=== PATIENT | female | born 1990 | race American Indian/Alaskan Native ===

== ENCOUNTER 2020-05-25 08:09 | Observation (INO) | payer OTHER ==
[2020-05-25] MEDS ORDERED: HYOSCYAMINE SUBL 0.125 MG TAB SL ONE (10:27)
[2020-05-25] MEDS ORDERED: FAMOTIDINE 20 MG TAB PO ONE (10:27)
[2020-05-25] MEDS ORDERED: ALUM-MAG HYDROXIDE-SIMETHICONE 200-200-20MG/5ML ORAL LIQD 30 ML PO ONE (10:27)
[2020-05-25] MEDS ORDERED: ONDANSETRON 4 MG/2 ML INJ IV ONE (10:29)
[2020-05-25] MEDS ORDERED: SODIUM CHLORIDE 0.9% 1000 ML 1,000 ML IV ONE ×2 (10:29→12:42)
[2020-05-25] MEDS ORDERED: MORPHINE 4 MG/1 ML INJ IV ONE (10:29)
[2020-05-25 10:34] LABS: Basophils % (Auto) 0.2 % (0.0-1.8); Eosinophils % (Auto) 0.1 % (0.0-4.3); Hematocrit 34.8 % (30.3-42.9); Hemoglobin 11.5 gm/dl (10.1-14.3); Lymphocytes # (Auto) 2.1 K/mm3 (1.2-5.4); Lymphocytes % (Auto) 25.2 % (13.4-35.0); Mean Corpuscular HGB Conc 33 % (30-34); Mean Corpuscular Volume 83 fl (79-97); Monocytes # (Auto) 0.6 K/mm3 (0.0-0.8); Monocytes % (Auto) 6.8 % (0.0-7.3); Platelet Count 316 K/mm3 (140-440); Red Blood Count 4.18 M/mm3 (3.65-5.03); Red Cell Distribution Width 14.5 % (13.2-15.2)
--- NOTE | 2020-05-25 10:39 | Emergency Department Report ---
ED Abdominal Pain HPI - General Chief Complaint: Abdominal Pain Stated Complaint: ABD/CP Time Seen by Provider: 05/25/20 10:15 Source: patient Mode of arrival: Ambulatory Limitations: No Limitations - History of Present Illness Initial Comments: Patient is a 29-year-old female presents emergency room complaints of epigastric abdominal pain that radiates up her chest that began 4 days ago. She has associated nausea. Patient states that she has a history of PUD and gallstones. She states that she has had a gallstone removal but still has her gallbladder. She denies any vomiting, diarrhea, fever, urinary symptoms, hematochezia, melena or hematemesis. She denies any other past medical history. No allergies to medications. Last menstrual cycle 05/18/2019. - Related Data Allergies Allergy/AdvReac Type Severity Reaction Status Date / Time No Known Allergies Allergy Unverified 05/25/20 08:25 ED Review of Systems ROS: Stated complaint: ABD/CP Other details as noted in HPI Comment: All other systems reviewed and negative ED Past Medical Hx - Past Medical History Previous Medical History?: No - Surgical History Hx Cholecystectomy: Yes Additional Surgical History: C SECTION - Social History Smoking Status: Never Smoker ED Physical Exam - General Limitations: No Limitations General appearance: alert, in no apparent distress - Head Head exam: Present: atraumatic, normocephalic - Eye Eye exam: Present: normal appearance - ENT ENT exam: Present: mucous membranes moist - Respiratory Respiratory exam: Present: normal lung sounds bilaterally. Absent: respiratory distress, wheezes, rales, rhonchi, stridor, chest wall tenderness, accessory muscle use, decreased breath sounds, prolonged expiratory - Cardiovascular Cardiovascular Exam: Present: regular rate, normal rhythm, normal heart sounds. Absent: systolic murmur, diastolic murmur, rubs, gallop - GI/Abdominal GI/Abdominal exam: Present: soft, tenderness (epigastric, RUQ, RLQ), guarding (voluntary), normal bowel sounds. Absent: distended, rebound, rigid - Neurological Exam Neurological exam: Present: alert, oriented X3 - Psychiatric Psychiatric exam: Present: normal affect, normal mood - Skin Skin exam: Present: warm, dry, intact ED Course Vital Signs 05/25/20 05/25/20 05/25/20 08:28 11:42 15:10 Temperature 98.2 F 97.1 F L Pulse Rate 96 H 99 H Respiratory 20 18 13 Rate Blood Pressure 142/70 112/53 Blood Pressure [left arm] O2 Sat by Pulse 95 100 Oximetry 05/25/20 05/25/20 05/25/20 15:15 15:30 15:45 Temperature Pulse Rate 80 84 72 Respiratory 13 15 14 Rate Blood Pressure 111/52 120/59 115/52 Blood Pressure [left arm] O2 Sat by Pulse 100 98 100 Oximetry 05/25/20 05/25/20 16:10 16:28 Temperature 98.1 F 98.1 F Pulse Rate 80 80 Respiratory 18 18 Rate Blood Pressure 116/51 Blood Pressure 116/51 [left arm] O2 Sat by Pulse 96 96 Oximetry - Consultations Consultation #1: 05/25/20 12:40 Received call from radiologist regarding severe acute appendicitis, no perforation or abscess currently, concern for potential impending perforation, ordered another liter of normal saline, place patient n.p.o., patient given Zosyn, general surgery paged 05/25/20 12:[address] Molina, ER attending who agrees with plan 05/25/20 12:[address] Ceja, general surgery regarding patient presentation and results, will consult on patient 05/25/20 12:58 attempted to call hospitalist, left voicemail, will await call back 05/25/20 13:[address] Waite, hospitalist who is in the emergency department, he will accept and resume care of patient, will admit patient to hospitalist service ED Medical Decision Making - Lab Data Result diagrams: 05/25/20 09:22 05/25/20 09:22 Lab Results 05/25/20 05/25/20 05/25/20 Range/Units 09:22 09:22 09:22 WBC 8.4 (4.5-11.0) K/mm3 RBC 4.18 (3.65-5.03) M/mm3 Hgb 11.5 (10.1-14.3) gm/dl Hct 34.8 (30.3-42.9) % MCV 83 (79-97) fl MCH 28 (28-32) pg MCHC 33 (30-34) % RDW 14.5 (13.2-15.2) % Plt Count 316 (140-440) K/mm3 Lymph % (Auto) 25.2 (13.4-35.0) % Murray % (Auto) 6.8 (0.0-7.3) % Eos % (Auto) 0.1 (0.0-4.3) % Baso % (Auto) 0.2 (0.0-1.8) % Lymph # (Auto) 2.1 (1.2-5.4) K/mm3 Murray # (Auto) 0.6 (0.0-0.8) K/mm3 Eos # (Auto) 0.0 (0.0-0.4) K/mm3 Baso # (Auto) 0.0 (0.0-0.1) K/mm3 Seg Neutrophils % 67.7 (40.0-70.0) % Seg Neutrophils # 5.7 (1.8-7.7) K/mm3 Sodium 136 L (137-145) mmol/L Potassium 4.0 (3.6-5.0) mmol/L Chloride 101.8 (98-107) mmol/L Carbon Dioxide 26 (22-30) mmol/L Anion Gap 12 mmol/L BUN 6 L (7-17) mg/dL Creatinine 0.7 (0.6-1.2) mg/dL Estimated GFR > 60 ml/min BUN/Creatinine Ratio 9 % Glucose 95 (65-100) mg/dL Calcium 8.4 (8.4-10.2) mg/dL Total Bilirubin 0.40 (0.1-1.2) mg/dL AST 15 (5-40) units/L ALT 15 (7-56) units/L Alkaline Phosphatase 64 (35-129) units/L Total Protein 7.4 (6.3-8.2) g/dL Albumin 4.3 (3.9-5) g/dL Albumin/Globulin Ratio 1.4 % Lipase 23 (13-60) units/L HCG, Qual (Negative) Urine Color (Yellow) Urine Turbidity (Clear) Urine pH (5.0-7.0) Ur Specific [place] (1.003-1.030) Urine Protein (Negative) mg/dL Urine Glucose (UA) (Negative) mg/dL Urine Ketones (Negative) mg/dL Urine Blood (Negative) Urine Nitrite (Negative) Urine Bilirubin (Negative) Urine Urobilinogen (<2.0) mg/dL Ur Leukocyte Esterase (Negative) Urine WBC (Auto) (0.0-6.0) /HPF Urine RBC (Auto) (0.0-6.0) /HPF U Epithel Cells (Auto) (0-13.0) /HPF Urine Mucus /HPF 05/25/20 05/25/20 Range/Units 09:22 11:57 WBC (4.5-11.0) K/mm3 RBC (3.65-5.03) M/mm3 Hgb (10.1-14.3) gm/dl Hct (30.3-42.9) % MCV (79-97) fl MCH (28-32) pg MCHC (30-34) % RDW (13.2-15.2) % Plt Count (140-440) K/mm3 Lymph % (Auto) (13.4-35.0) % Murray % (Auto) (0.0-7.3) % Eos % (Auto) (0.0-4.3) % Baso % (Auto) (0.0-1.8) % Lymph # (Auto) (1.2-5.4) K/mm3 Murray # (Auto) (0.0-0.8) K/mm3 Eos # (Auto) (0.0-0.4) K/mm3 Baso # (Auto) (0.0-0.1) K/mm3 Seg Neutrophils % (40.0-70.0) % Seg Neutrophils # (1.8-7.7) K/mm3 Sodium (137-145) mmol/L Potassium (3.6-5.0) mmol/L Chloride (98-107) mmol/L Carbon Dioxide (22-30) mmol/L Anion Gap mmol/L BUN (7-17) mg/dL Creatinine (0.6-1.2) mg/dL Estimated GFR ml/min BUN/Creatinine Ratio % Glucose (65-100) mg/dL Calcium (8.4-10.2) mg/dL Total Bilirubin (0.1-1.2) mg/dL AST (5-40) units/L ALT (7-56) units/L Alkaline Phosphatase (35-129) units/L Total Protein (6.3-8.2) g/dL Albumin (3.9-5) g/dL Albumin/Globulin Ratio % Lipase (13-60) units/L HCG, Qual Negative (Negative) Urine Color Yellow (Yellow) Urine Turbidity Clear (Clear) Urine pH 6.0 (5.0-7.0) Ur Specific [place] 1.012 (1.003-1.030) Urine Protein <15 mg/dl (Negative) mg/dL Urine Glucose (UA) Neg (Negative) mg/dL Urine Ketones Neg (Negative) mg/dL Urine Blood Neg (Negative) Urine Nitrite Neg (Negative) Urine Bilirubin Neg (Negative) Urine Urobilinogen 2.0 (<2.0) mg/dL Ur Leukocyte Esterase Neg (Negative) Urine WBC (Auto) < 1.0 (0.0-6.0) /HPF Urine RBC (Auto) 1.0 (0.0-6.0) /HPF U Epithel Cells (Auto) 2.0 (0-13.0) /HPF Urine Mucus Few /HPF - EKG Data EKG shows normal: sinus rhythm, axis, intervals, QRS complexes, ST-T waves Rate: normal - Radiology Data Radiology results: report reviewed Ordering Physician: KAR PHILLIPS Date of Service: 05/25/20 Procedure(s): CT abdomen pelvis w con Accession Number(s): [id number] cc: KAR PHILLIPS CT ABDOMEN AND PELVIS WITH CONTRAST INDICATION / CLINICAL INFORMATION: abd pain, nausea, hx of gallstones/PUD. TECHNIQUE: Axial CT images were obtained through the abdomen and pelvis following the administration of intravenous contrast. All CT scans at this location are performed using CT dose reduction for ALARA by means of automated exposure control. COMPARISON: Abdominal radiograph the same date. FINDINGS: LOWER CHEST: No significant abnormality. LIVER: No significant abnormality. GALLBLADDER: Surgically absent. PANCREAS: No significant abnormality. SPLEEN: No significant abnormality. ADRENALS: No significant abnormality. KIDNEYS / URETERS: No significant abnormality. URINARY BLADDER: No significant abnormality. REPRODUCTIVE ORGANS: There is a 1.8 cm right ovarian cyst. STOMACH / SMALL BOWEL: No significant abnormality. COLON: No significant abnormality. APPENDIX: The appendix is severely dilated (up to 1.6 cm) with mucosal thickening and extensive periappendiceal inflammatory fat stranding. There is no evidence of perforation or abscess formation at this time. There are prominent right lower quadrant and mesenteric lymph nodes, likely reactive. PERITONEUM: No free fluid. No free air. No fluid collection. LYMPH NODES: No significant adenopathy. AORTA / ARTERIES: No significant abnormality. IVC / VEINS: No significant abnormality. SKELETAL SYSTEM: No significant abnormality. ADDITIONAL FINDINGS: None. IMPRESSION: 1. Severe acute appendicitis without perforation or abscess formation. Surgical consultation is advised. 2. 1.8 cm right ovarian cyst. CRITICAL RESULT: Acute appendicitis Time of Discovery (SENIOR DATA INTEGRATION DEVELOPER/CDT): 11:35 AM Time of Communication (SENIOR DATA INTEGRATION DEVELOPER/CDT): 11:40 AM Licensed Practitioner Receiving Report: Dariela Kelly Read Back Performed: Yes. Signer Name: Lucho Wagner MD Signed: 05/25/2020 12:45 PM Workstation Name: [id number] Transcribed By: SS Dictated By: LUCHO WAGNER Electronically Authenticated By: LUCHO WAGNER Signed Date/Time: 05/25/20 1245 DD/ 1233 TD/TT: Ordering Physician: KAR MONROE Date of Service: 05/25/20 Procedure(s): XR abd series w cxr 1V Accession Number(s): [id number] cc: KAR MONROE Fluoro Time In Minutes: EXAMINATION: XR abd series w cxr 1V HISTORY: abd pain COMPARISON: None available. FINDINGS: Lines and tubes: None Chest: The lungs are clear. No evidence of cardiomegaly, pleural effusion or pneumothorax. Abdomen: Cholecystectomy clips. Bowel gas pattern is nonobstructive. Moderate retained stool right colon. No suspicious calcifications or free air. There is borderline hepatomegaly. Other: None. IMPRESSION: 1. No acute radiographic abnormality. 2. Nonspecific borderline hepatomegaly. Signer Name: Linnea Morrow MD Signed: 05/25/2020 11:17 AM Workstation Name: [id number] Transcribed By: JS Dictated By: LINNEA MORROW MD Electronically Authenticated By: LINNEA MORROW MD Signed Date/Time: 05/25/20 1117 DD/ 1115 TD/TT: - Medical Decision Making Patient is a 29-year-old female presents emergency room complaints of epigastric abdominal pain that radiates up her chest that began 4 days ago. She has associated nausea. Patient states that she has a history of PUD and gallstones. She states that she has had a gallstone removal but still has her gallbladder. She denies any vomiting, diarrhea, fever, urinary symptoms, hematochezia, melena or hematemesis. She denies any other past medical history. No allergies to medications. Last menstrual cycle 05/18/2019. Vitals are stable. On exam patient has epigastric, right upper quadrant, right lower quadrant tenderness on exam with voluntary guarding. Labs are normal. hCG is negative. UA is within normal limits. EKG within normal limits. X-ray abdomen with chest 1. No acute radiographic abnormality. 2. Nonspecific borderline hepatomegaly. Patient initially stated that she just had gallstone removal without a cholecystectomy, her gallbladder is surgically absent which is consistent with a cholecystectomy. CT abdomen pelvis with IV contrast 1. Severe acute appendicitis without perforation or abscess formation. Surgical consultation is advised. 2. 1.8 cm right ovarian cyst. Received call from radiologist regarding severe acute appendicitis, no perforation or abscess currently, concern for potential impending perforation, ordered another liter of normal saline, place patient n.p.o., patient given Magda general surgery paged. Discussed case with Dr. Molina, ER attending who agrees with plan. Discussed case with Dr. Ceja, general surgery regarding patient presentation and results, will consult on patient. Spoke with Dr. Waite, hospitalist who is in the emergency department, he will accept and resume care of patient, will admit patient to hospitalist service Critical care attestation.: If time is entered above; I have spent that time in minutes in the direct care of this critically ill patient, excluding procedure time. ED Disposition Clinical Impression: Acute appendicitis Qualifiers: Acute appendicitis type: with localized peritonitis Appendicitis gangrene presence: without gangrene Appendicitis perforation presence: without perforation Appendicitis abscess presence: without abscess Qualified Code(s): K35.30 - Acute appendicitis with localized peritonitis, without perforation or gangrene Disposition: OP ADMIT IP TO THIS HOSP Is pt being admited?: Yes Does the pt Need Aspirin: No Condition: Fair Time of Disposition: 12:54
[2020-05-25 11:18] LABS: Alanine Aminotransferase 15 units/L (7-56); Albumin 4.3 g/dL (3.9-5); Blood Urea Nitrogen 6 mg/dL (7-17); Calcium 8.4 mg/dL (8.4-10.2); Hemolysis Index 0
[2020-05-25 11:20] LABS: BUN/Creatinine Ratio 9
--- NOTE | 2020-05-25 11:22 | XRay Report ---
EXAMINATION: XR abd series w cxr 1V HISTORY: abd pain COMPARISON: None available. FINDINGS: Lines and tubes: None Chest: The lungs are clear. No evidence of cardiomegaly, pleural effusion or pneumothorax. Abdomen: Cholecystectomy clips. Bowel gas pattern is nonobstructive. Moderate retained stool right co marcos. No suspicious calcifications or free air. There is borderline hepatomegaly. Other: None. IMPRESSION: 1. No acute radiographic abnormality. 2. Nonspecific borderline hepatomegaly. Signer Name: Ken Morrow MD Signed: 05/25/2020 11:17 AM Workstation Name: [id number]
[2020-05-25 12:10] LABS: Bilirubin,Urine NEG (Negative); Blood,Urine NEG (Negative); Color,Urine Yellow (Yellow); Mucus,Urine FEW /HPF; Protein,Urine <15 mg/dL mg/dL (Negative); WBC,Urine < 1.0 /HPF (0.0-6.0)
[2020-05-25] MEDS ORDERED: PIPERACIL/TAZOBACTA 4.5/NS 100 4.5 GM/100 ML VIAL IV ONE (12:42)
--- NOTE | 2020-05-25 12:50 | Cat Scan Report ---
CT ABDOMEN AND PELVIS WITH CONTRAST INDICATION / CLINICAL INFORMATION: abd pain, nausea, hx of gallstones/PUD. TECHNIQUE: Axial CT images were obtained through the abdomen and pelvis following the administration of intraven ous contrast. All CT scans at this location are performed using CT dose reduction for ALARA by means of automated exposure control. COMPARISON: Abdominal radiograph the same date. FINDINGS: LOWER CHEST: No significant abnormality. LIVER: No significant abnormality. GALLBLADDER: Surgically absent. PANCREAS: No significant abnormality. SPLEEN: No significant abnormality. ADRENALS: No significant abnormality. KIDNEYS / URETERS: No significant abnormality. URINARY BLADDER: No significant abnormality. REPRODUCTIVE ORGANS: There is a 1.8 cm right ovarian cyst. STOMACH / SMALL BOWEL: No significant abnormality. COLON: No significant abnormality. APPENDIX: The appendix is severely dilated (up to 1.6 cm) with mucosal thickening and extensive peria ppendiceal inflammatory fat stranding. There is no evidence of perforation or abscess formation at th is time. There are prominent right lower quadrant and mesenteric lymph nodes, likely reactive. PERITONEUM: No free fluid. No free air. No fluid collection. LYMPH NODES: No significant adenopathy. AORTA / ARTERIES: No significant abnormality. IVC / VEINS: No significant abnormality. SKELETAL SYSTEM: No significant abnormality. ADDITIONAL FINDINGS: None. IMPRESSION: 1. Severe acute appendicitis without perforation or abscess formation. Surgical consultation is advis ed. 2. 1.8 cm right ovarian cyst. CRITICAL RESULT: Acute appendicitis Time of Discovery (ANAESTHETIC TECHNICIAN/CDT): 11:35 AM Time of Communication (ANAESTHETIC TECHNICIAN/CDT): 11:40 AM Licensed Practitioner Receiving Report: Dariela Kelly Read Back Performed: Yes. Signer Name: Jem Wagner MD Signed: 05/25/2020 12:45 PM Workstation Name: [id number]
--- NOTE | 2020-05-25 13:17 | History and Physical Report ---
History of Present Illness Chief complaint: My stomach hurts History of present illness: 29 YO Female with Obesity presents to ED for evaluation. Patient states "my stomach hurts". Patient states that she has experienced abdominal pain over the last 4 days with persistent symptoms over the same timeframe. Patient states that pain is 4/10, intermittent, radiates to the left side of her abdomen, associated with nausea. No exacerbating or alleviating factors. Patient transported to [facility] via private vehicle for further care and evaluation of the aforementioned symptoms. The patient was seen and evaluated in the emergency department. All lab and imaging studies reviewed. Patient underwent CT scan of the abdomen and pelvis which revealed acute appendicitis. Surgical team consulted in ED. Patient placed in observation status and admitted to surgical floor. Patient is pending surgical intervention as per surgical team. Patient denies fever, chills, chest pain, palpitation, productive cough, skin rash, recent ill contacts, or known exposure to COVID-19. No prior admission for review. No medication listed at the time of my admission for reconciliation. Past History Past Medical History: other (See HP) Past Surgical History: No surgical history, Other (Reviewed) Social history: single. denies: smoking, alcohol abuse, prescription drug abuse Family history: no significant family history Medications and Allergies Allergies Allergy/AdvReac Type Severity Reaction Status Date / Time No Known Allergies Allergy Unverified 05/25/20 08:25 Active Meds: Active Medications Sodium Chloride (Nacl 0.9% 1000 Ml) 1,000 mls @ 999 mls/hr IV BOLUS ONE Stop: 05/25/20 13:42 Last Admin: 05/25/20 13:03 Dose: 999 mls/hr Documented by: Review of Systems Constitutional: no weight loss, no weight gain, no fever, no chills Ears, nose, mouth and throat: no ear pain, no ear discharge, no tinnitis, no decreased hearing, no nose pain Breasts: no change in shape, no swelling, no mass Cardiovascular: no chest pain, no orthopnea, no rapid/irregular heart beat, no edema, no syncope Respiratory: no cough, no excessive sputum, no dyspnea on exertion Gastrointestinal: abdominal pain, nausea, no vomiting, no diarrhea, no constipation, no change in bowel habits, no hematemesis Genitourinary Female: no pelvic pain, no flank pain, no dysuria, no urinary frequency, no urgency Rectal: no pain, no incontinence, no bleeding Musculoskeletal: no neck stiffness, no shooting arm pain, no arm numbness/tingling, no shooting leg pain, no leg numbness/tingling Integumentary: no rash, no pruritis, no redness, no sores, no wounds Neurological: no transient paralysis, no paralysis, no weakness, no parathesias, no tingling, no seizures, no syncope Psychiatric: no anxiety, no memory loss, no sleep disturbances, no hypersomnia, no change in appetite, no change in libido, no disorientation Endocrine: no cold intolerance, no heat intolerance, no polydipsia, no polyuria, no nocturia, no excessive sweating Hematologic/Lymphatic: no easy bruising, no easy bleeding, no lymphedema Allergic/Immunologic: no urticaria, no persistent infections, no angioedema Exam - Constitutional Vitals: Temp Pulse Resp BP Pulse Ox 98.2 F 96 H 18 142/70 95 05/25/20 08:28 05/25/20 08:28 05/25/20 11:42 05/25/20 08:28 05/25/20 08:28 General appearance: Present: mild distress, obese - EENT Eyes: Present: PERRL ENT: hearing intact, clear oral mucosa - Neck Neck: Present: supple, normal ROM - Respiratory Respiratory effort: normal Respiratory: bilateral: CTA - Cardiovascular Heart Sounds: Present: S1 & S2. Absent: rub, click - Extremities Extremities: pulses symmetrical, No edema Peripheral Pulses: within normal limits - Abdominal General gastrointestinal: Present: soft, non-tender, tender, normal bowel sounds. Absent: hepatomegaly, splenomegaly Localized gastrointestinal: tender: RLQ Female genitourinary: Present: normal - Integumentary Integumentary: Present: clear, warm, dry - Musculoskeletal Musculoskeletal: gait normal, strength equal bilaterally - Psychiatric Psychiatric: appropriate mood/affect, intact judgment & insight - Neurologic Neurologic: CNII-XII intact, moves all extremities Results - Labs CBC & Chem 7: 05/25/20 09:22 05/25/20 09:22 Labs: Abnormal lab results 05/25/20 Range/Units 09:22 Sodium 136 L (137-145) mmol/L BUN 6 L (7-17) mg/dL Assessment and Plan - Patient Problems (1) Acute appendicitis Current Visit: Yes Status: Acute Qualifiers: Acute appendicitis type: with localized peritonitis Appendicitis gangrene presence: without gangrene Appendicitis perforation presence: without perforation Appendicitis abscess presence: without abscess Qualified Code(s): K35.30 - Acute appendicitis with localized peritonitis, without perforation or gangrene Plan to address problem: CT scan abdomen and pelvis, IV antibiotic therapy, IV fluid resuscitation therapy, n.p.o., surgery team consulted in ED. Patient pending surgical intervention, supportive care. (2) Abdominal pain Current Visit: Yes Status: Acute Plan to address problem: Bowel rest, pain control, IV fluid resuscitation therapy, supportive care. (3) Obesity Current Visit: Yes Status: Acute Plan to address problem: Balanced diet, increase physical activity discharge, (4) DVT prophylaxis Current Visit: Yes Status: Acute Plan to address problem: SCD to bilateral lower extremities while in bed, patient is ambulatory.
[2020-05-25] MEDS ORDERED: BUPIVACAINE-EPINEPHRINE/PF 0.5%-1:200,000 (30 ML) VIAL INFILTRATI ONE (13:21)
[2020-05-25] MEDS ORDERED: LIDOCAINE (1%) 10 MG/1 ML VIAL 20 ML MDV ONE (13:21)
[2020-05-25] MEDS ORDERED: SUCCINYLCHOLINE CHLORIDE 200 MG/10 ML INJ MDV ONE (13:30)
[2020-05-25] MEDS ORDERED: SODIUM CHLORIDE 0.9% 1000 ML 1,000 ML IV SCH (13:30)
[2020-05-25] MEDS ORDERED: ROCURONIUM 50 MG/5 ML INJ IV ONE (13:30)
[2020-05-25] MEDS ORDERED: propofoL 200 MG/20 ML VIAL IV ONE (13:32)
[2020-05-25] MEDS ORDERED: SODIUM CHLORIDE 0.9% IRR 1,500 ML BOTTLE IR ONE (13:39)
[2020-05-25] MEDS ORDERED: BUPIVACAINE/PF (0.5%) 5 MG/1 ML 30 ML VIAL INFILTRATI ONE (13:39)
[2020-05-25] MEDS ORDERED: LIDOCAINE (1%) 10 MG/1 ML VIAL 20 ML MDV INFILTRATI ONE (13:40)
[2020-05-25] MEDS ORDERED: LIDOCAINE MPF (2%) 20 MG/1 ML VIAL 5 ML ONE (13:56)
[2020-05-25] MEDS ORDERED: fentaNYL 100 MCG/2 ML INJ ONE (13:56)
[2020-05-25] MEDS ORDERED: ONDANSETRON 4 MG/2 ML INJ IV PRN ×3 (14:00→16:21)
[2020-05-25] MEDS ORDERED: ACETAMINOPHEN 325 MG TAB PO PRN (14:00)
[2020-05-25] MEDS ORDERED: HYDROmorphone 1 MG/1 ML INJ ONE (14:18)
[2020-05-25] MEDS ORDERED: NEOSTIGMINE 10MG/10 ML INJ MDV ONE (14:31)
[2020-05-25] MEDS ORDERED: GLYCOPYRROLATE 0.4 MG/2 ML INJ ONE (14:31)
[2020-05-25] MEDS ORDERED: SUGAMMADEX SODIUM 200 MG/2 ML VIAL IV ONE (14:58)
[2020-05-25] MEDS ORDERED: ONDANSETRON 4 MG/2 ML INJ ONE (15:00)
--- NOTE | 2020-05-25 15:17 | Consultation ---
History of Present Illness Consult date: 05/25/20 Reason for consult: abdominal pain Chief complaint: abdominal pain - History of present illness History of present illness: 29 year old female who presented with a 4 day history of hoda-umbilical pain krishna t migrated to the RLQ. She had some nausea. She had a CT scan that showed an appendix dilated up to 1.6cm. Past History Past Medical History: other (peptic ulcer disease) Past Surgical History: , Other ("gallstones removed") Medications and Allergies Allergies Allergy/AdvReac Type Severity Reaction Status Date / Time No Known Allergies Allergy Unverified 05/25/20 08:25 Active Meds: Active Medications Acetaminophen (Acetaminophen 325 Mg Tab) 650 mg PO Q4H PRN PRN Reason: Pain MILD(1-3)/Fever >100.5/CASH Albuterol (Albuterol 2.5 Mg/3 Ml Nebu) 2.5 mg IH Q4HRT PRN PRN Reason: Shortness Of Breath Sodium Chloride (Nacl 0.9% 1000 Ml) 1,000 mls @ 125 mls/hr IV DIRECT WINNIE Piperacillin Sod/Tazobactam Sod (Zosyn/Ns 4.5gm/100ml) 4.5 gm in 100 mls @ 200 mls/hr IV Q8H WINNIE; Protocol Morphine Sulfate (Morphine 2 Mg/1 Ml Inj) 2 mg IV Q4H PRN PRN Reason: Pain, Moderate (4-6) Ondansetron HCl (Ondansetron 4 Mg/2 Ml Inj) 4 mg IV Q8H PRN PRN Reason: Nausea And Vomiting Sodium Chloride (Sodium Chloride 0.9% 10 Ml Flush Syringe) 10 ml IV BID WINNIE Sodium Chloride (Sodium Chloride 0.9% 10 Ml Flush Syringe) 10 ml IV PRN PRN PRN Reason: LINE FLUSH Review of Systems - Constitutional poor appetite, no weight loss, no weight gain - Cardiovascular no chest pain - Respiratory no cough - Gastrointestinal abdominal pain, nausea - Genitourinary Genitourinary: no dysuria Exam Vital Signs Temp Pulse Resp BP Pulse Ox 98.2 F 96 H 20 142/70 95 05/25/20 08:28 05/25/20 08:28 05/25/20 08:28 05/25/20 08:28 05/25/20 08:28 - General physical appearance Positive: well developed, well nourished, no distress - Respiratory Positive: normal expansion, normal respiratory effort - Cardiovascular Heart Sounds: Present: S1 & S2 - Extremities Extremities: no ischemia - Abdomen Abdomen: Present: soft, guarding, other (tender to palpation in the mid abdomen and RLQ). Absent: distended, rigid Results - Labs 05/25/20 09:22 05/25/20 09:22 Abnormal lab results 05/25/20 Range/Units 09:22 Sodium 136 L (137-145) mmol/L BUN 6 L (7-17) mg/dL Diabetes panel 05/25/20 Range/Units 09:22 Sodium 136 L (137-145) mmol/L Potassium 4.0 (3.6-5.0) mmol/L Chloride 101.8 (98-107) mmol/L Carbon Dioxide 26 (22-30) mmol/L BUN 6 L (7-17) mg/dL Creatinine 0.7 (0.6-1.2) mg/dL Glucose 95 (65-100) mg/dL Calcium 8.4 (8.4-10.2) mg/dL AST 15 (5-40) units/L ALT 15 (7-56) units/L Alkaline Phosphatase 64 (35-129) units/L Total Protein 7.4 (6.3-8.2) g/dL Albumin 4.3 (3.9-5) g/dL Calcium panel 05/25/20 Range/Units 09:22 Calcium 8.4 (8.4-10.2) mg/dL Albumin 4.3 (3.9-5) g/dL Pituitary panel 05/25/20 Range/Units 09:22 Sodium 136 L (137-145) mmol/L Potassium 4.0 (3.6-5.0) mmol/L Chloride 101.8 (98-107) mmol/L Carbon Dioxide 26 (22-30) mmol/L BUN 6 L (7-17) mg/dL Creatinine 0.7 (0.6-1.2) mg/dL Glucose 95 (65-100) mg/dL Calcium 8.4 (8.4-10.2) mg/dL Adrenal panel 05/25/20 Range/Units 09:22 Sodium 136 L (137-145) mmol/L Potassium 4.0 (3.6-5.0) mmol/L Chloride 101.8 (98-107) mmol/L Carbon Dioxide 26 (22-30) mmol/L BUN 6 L (7-17) mg/dL Creatinine 0.7 (0.6-1.2) mg/dL Glucose 95 (65-100) mg/dL Calcium 8.4 (8.4-10.2) mg/dL Total Bilirubin 0.40 (0.1-1.2) mg/dL AST 15 (5-40) units/L ALT 15 (7-56) units/L Alkaline Phosphatase 64 (35-129) units/L Total Protein 7.4 (6.3-8.2) g/dL Albumin 4.3 (3.9-5) g/dL - Imaging CT scan - abdomen: report reviewed, image reviewed CT scan - pelvis: report reviewed, image reviewed Assessment and Plan 29 year old female with acute appendicitis. Afebrile and stable. Discussed surgical and non surgical options. Pt consented to have laparoscopic appendectomy.
--- NOTE | 2020-05-25 15:18 | Event Note ---
Date: 05/25/20 uneventful laparoscopic appendectomy. If patient does well over night can be discharged tomorrow
--- NOTE | 2020-05-25 15:22 | Operative Report ---
Operative Report Operative Report: Date: 05/25/20 Primary Surgeon: Benjamín Ceja MD Procedure: Laparoscopic Appendectomy Anesthesia: GETA Pre-Operative Diagnosis: acute appendicitis Post-Operative Diagnosis: Same Indications for Procedure: 29 year old female presented to ED with 4 day hx of worsening abdominal pain. CT scan showed dilated appendix up to 1.6cm with evidence of perforation or abscess. Pt signed informed consent for laparoscopic appendectomy. Description of Procedure(s): The patient was brought to the operating room and underwent general anesthesia after lower extremity SCD were placed. The abdomen was prepped and draped in the standard fashion. IV antibiotics were given and a time out was performed. Using a veress needle via a stab incision in the umbilicus, the abdomen was insuflated to a pressure of 15mmHg. Using optivew technique, a 5mm trocar was placed just superior and to the left of the umbilicus. There was no gross injury noted to any intra-abdominal structures. After which working trocars were placed under direct visualization. A 12 mm trocar was placed in left mid abdomen, and a 5 mm trocar was inserted in the suprapubic area. The patient was placed in slight Trendelenburg position and tilted towards her left side. The cecum was identified and mobilized, as well as the terminal ileum. There was no gross purulent fluid. The appendix was noted to be tracking into the pelvis. The mesoappendix was transected with the LigaSure. The appendix was then taken at its base with a white load on a laparoscopic stapler. The staple line was inspected and found to be hemostatically sound and secure. There was minimal irrigation of the right lower quadrant. The appendix was placed in Endo Catch bag. It was then retrieved via the 12 mm trocar. The fascia was then closed using a #1 PDS and a suture passer device. Trocars removed under direct visualization. The insufflation was then terminated. The skin incisions were closed using 4-0 Monocryl sutures. All the wounds dressed with dermabond. The patient tolerated the procedure well, was extubated and taken to the recovery room in satisfactory condition. Specimen: appendix Complications: none immediate EBl: minimal Findings: diffusely dilated appendix that was firm. no signs of perforation or abscess
[2020-05-25] MEDS: MORPHINE 2 MG/1 ML INJ IV PRN ×2 (15:31→21:31)
[2020-05-25] MEDS ORDERED: MORPHINE 2 MG/1 ML INJ IV PRN (15:41)
[2020-05-25] MEDS ORDERED: ALBUTEROL 2.5 MG/3 ML NEBU IH PRN (16:00)
[2020-05-25] MEDS ORDERED: oxyCODONE /ACETAMINOPHEN 5-325MG TAB PO PRN (16:21)
--- NOTE | 2020-05-25 16:50 | Anesthesia Day of Surgery ---
Anesthesia Day of Surgery - Day of Surgery Patient Examined: Yes Patient H&P Reviewed: Yes Patient is NPO: Yes
--- NOTE | 2020-05-25 16:50 | Anesthesia Consultation ---
Anesthesia Consult and Med Hx Date of service: 05/25/20 - Airway Anesthetic Teeth Evaluation: Good (multiple missing molars) ROM Head & Neck: Adequate Mental/Hyoid Distance: Adequate Mallampati Class: Class III Intubation Access Assessment: Possibly Difficult - Pulmonary Exam CTA: Yes - Cardiac Exam Cardiac Exam: RRR - Pre-Operative Health Status ASA Pre-Surgery Classification: ASA1 Proposed Anesthetic Plan: General - Pulmonary Hx Smoking: No Hx Respiratory Symptoms: No - Cardiovascular System Hx Hypertension: No - Central Nervous System CVA: No - Endocrine Hx Renal Disease: No Hx Liver Disease: No Hx Insulin Dependent Diabetes: No Hx Non-Insulin Dependent Diabetes: No Hx Thyroid Disease: No - Other Systems Hx Obesity: Yes (BMI 32) - Additional Comments Anesthesia Medical History Comments: Late entry, patient evaluated prior to procedure. No hx anesthetic complications. Acute appendicitis scheduled for lap appendectomy.
--- NOTE | 2020-05-25 16:51 | Post Anesthesia Evaluation ---
- Post Anesthesia Evaluation Patient Participated: Yes Airway Patent: Yes Stable Respiratory Function: Yes Nausea/Vomiting: No Temp > 96.8F: Yes Pain Manageable: Yes Adequeate Hydration: Yes Anesthesia Complications: No
[2020-05-25] MEDS: KETOROLAC 30 MG/1 ML INJ IV SCH (18:25)
[2020-05-25] MEDS: PIPERACIL/TAZOBACTA 4.5/NS 100 4.5 GM/100 ML VIAL IV SCH (21:30)
[2020-05-26] MEDS: KETOROLAC 30 MG/1 ML INJ IV SCH ×3 (00:44→11:59)
[2020-05-26] MEDS: PIPERACIL/TAZOBACTA 4.5/NS 100 4.5 GM/100 ML VIAL IV SCH ×2 (05:33→12:00)
[2020-05-26 06:31] LABS: Basophils % (Auto) 0.1 % (0.0-1.8); Eosinophils % (Auto) 0.3 % (0.0-4.3); Hematocrit 29.8 % (30.3-42.9); Lymphocytes # (Auto) 2.5 K/mm3 (1.2-5.4); Lymphocytes % (Auto) 39.9 % (13.4-35.0); Mean Corpuscular HGB Conc 34 % (30-34); Mean Corpuscular Volume 84 fl (79-97); Monocytes # (Auto) 0.4 K/mm3 (0.0-0.8); Monocytes % (Auto) 5.9 % (0.0-7.3); Platelet Count 270 K/mm3 (140-440); Red Blood Count 3.56 M/mm3 (3.65-5.03); Red Cell Distribution Width 14.6 % (13.2-15.2)
[2020-05-26 06:51] LABS: BUN/Creatinine Ratio 5; Blood Urea Nitrogen 4 mg/dL (7-17); Calcium 7.8 mg/dL (8.4-10.2); Hemolysis Index 0
[2020-05-26 12:18] VITALS: BP 98/49
--- NOTE | 2020-05-26 12:28 | Progress Note ---
Assessment and Plan POD#1 s/p lap appy for acute appendicitis. Afebrile and stable. Pt can be discharged to home for surgical perspective and follow up in the office in two weeks. Will review pathology. Pt can advance diet as tolerated and return to work in 1 week. Subjective Date of service: 05/26/20 Patient Reports: Positive: feels better, still having pain, pain is less, tolerating liquids well (no acute events. Pt says that she feels better although she says she is having some post surgical pain.) Objective Vital Signs - 12hr 05/26/20 05/26/20 05/26/20 05:35 07:29 12:00 Temperature 97.8 F 97.9 F 97.6 F Pulse Rate 73 73 85 Respiratory 18 16 18 Rate Blood Pressure 98/45 90/47 Blood Pressure 98/49 [left arm] O2 Sat by Pulse 98 98 100 Oximetry - General physical appearance well developed, well nourished, no distress, moderate pain - Respiratory normal expansion, normal respiratory effort - Abdomen soft, not distended, not guarding, other (incisions c/d/i, appropriately tender to palpation) - Labs 05/26/20 05:51 05/26/20 05:51 Diabetes panel 05/26/20 Range/Units 05:51 Sodium 140 (137-145) mmol/L Potassium 3.9 (3.6-5.0) mmol/L Chloride 107.0 (98-107) mmol/L Carbon Dioxide 27 (22-30) mmol/L BUN 4 L (7-17) mg/dL Creatinine 0.8 (0.6-1.2) mg/dL Glucose 90 (65-100) mg/dL Calcium 7.8 L (8.4-10.2) mg/dL Calcium panel 05/26/20 Range/Units 05:51 Calcium 7.8 L (8.4-10.2) mg/dL Pituitary panel 05/26/20 Range/Units 05:51 Sodium 140 (137-145) mmol/L Potassium 3.9 (3.6-5.0) mmol/L Chloride 107.0 (98-107) mmol/L Carbon Dioxide 27 (22-30) mmol/L BUN 4 L (7-17) mg/dL Creatinine 0.8 (0.6-1.2) mg/dL Glucose 90 (65-100) mg/dL Calcium 7.8 L (8.4-10.2) mg/dL Adrenal panel 05/26/20 Range/Units 05:51 Sodium 140 (137-145) mmol/L Potassium 3.9 (3.6-5.0) mmol/L Chloride 107.0 (98-107) mmol/L Carbon Dioxide 27 (22-30) mmol/L BUN 4 L (7-17) mg/dL Creatinine 0.8 (0.6-1.2) mg/dL Glucose 90 (65-100) mg/dL Calcium 7.8 L (8.4-10.2) mg/dL
--- NOTE | 2020-05-26 12:32 | Post Anesthesia Evaluation ---
- Post Anesthesia Evaluation Patient Participated: Yes Airway Patent: Yes Stable Respiratory Function: Yes Nausea/Vomiting: No Temp > 96.8F: Yes Pain Manageable: Yes Adequeate Hydration: Yes Anesthesia Complications: No Patient on Ventilator: No Other Comments: post op day 1 status postlap appy
--- NOTE | 2020-05-26 13:38 | Discharge Summary ---
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 Patient underwent CT scan of the abdomen and pelvis which revealed acute appendicitis. Surgical team consulted in ED. Patient placed in observation status and admitted to surgical floor. Patient was undergone laparoscopic appendectomy, she tolerated the procedure very well. Patient was monitored overnight, she was tolerating diet without any complication. Patient was then discharged home in stable condition with outpatient follow-up. Discharge diagnosis: Acute appendicitis status post appendectomy Abdominal pain due to appendicitis, resolved Obesity, dietary and exercise regimen as outpatient Mild hyponatremia due to dehydration Disposition: DC-01 TO HOME OR SELFCARE Time spent for discharge: 34 minutes Exam - Constitutional Vitals: Temp Pulse Resp BP Pulse Ox 97.6 F 85 18 98/49 100 05/26/20 12:00 05/26/20 12:00 05/26/20 12:00 05/26/20 12:00 05/26/20 12:00 Plan Activity: advance as tolerated Weight Bearing Status: Non-Weight Bearing Diet: advance as tolerated Wound: per your surgeon's advice Follow up with: PRIMARY CAREMD [Primary Care Provider] - 3-5 Days YUKI VALDEZ MD [Staff Physician] - 7 Days Prescriptions: oxyCODONE /ACETAMINOPHEN [Percocet 5/325] 1 tab PO Q4HR PRN #20 tab PRN Reason: Pain , Severe (7-10)
== END 2020-05-26 19:43 | disposition home or self-care (01) ==
LOC: ED 08:09 → 3A 13:16 → 3B-SURG 15:17
PROVIDERS: ADMIT Internal Medicine; ATTEND Internal Medicine
DX: K35.30 Acute appendicitis with localized peritonitis, without perforation or gangrene (principal); E66.9 Obesity, unspecified; Z68.31 Body mass index [BMI] 31.0-31.9, adult; Z98.891 History of uterine scar from previous surgery
CPT/HCPCS: 36415; 44970; 74022; 74177; 80048; 80053; 81001; 83690; 84703; 85025; 88304; 93005; 96361; 96365; 96366; 96375; 96376; 99285; G0378; J0330; J1170; J1885; J2270; J2405; J2543; J2704; J2710; J3010; J7030; Q9967

== ENCOUNTER 2021-01-25 12:12 | Emergency (ER) | payer SELFPAY ==
--- NOTE | 2021-01-25 13:03 | Event Note ---
ED Screening Note ED Screening Note: severe LLQ pain BM normal yesterday No n/v/d no fever or chills no dysuria no vag dc LMP ended 9- difficulty ambulating given degree of pain This initial assessment/diagnostic orders/clinical plan/treatment(s) is/are subject to change based on patients health status, clinical progression and re-assessment by fellow clinical providers in the ED. Further treatment and workup at subsequent clinical providers discretion. Patient/guardian urged not to elope from the ED as their condition may be serious if not clinically assessed and managed. Initial orders include: to bed for MD oconnor ? cyst/fibroid/mass
[2021-01-25] MEDS ORDERED: KETOROLAC 30 MG/1 ML INJ IV ONE (13:15)
[2021-01-25 13:34] LABS: Hemoglobin 11.8 gm/dl (10.1-14.3); Mean Corpuscular HGB Conc 34 % (30-34); Mean Corpuscular Volume 84 fl (79-97); Platelet Count 308 K/mm3 (140-440); Red Blood Count 4.16 M/mm3 (3.65-5.03); Red Cell Distribution Width 13.8 % (13.2-15.2)
[2021-01-25 13:48] LABS: Blood Urea Nitrogen 8 mg/dL (7-17); Calcium 8.7 mg/dL (8.4-10.2); Hemolysis Index 3
[2021-01-25 14:08] LABS: BUN/Creatinine Ratio 13
--- NOTE | 2021-01-25 16:00 | Cat Scan Report ---
CT ABDOMEN AND PELVIS WITH CONTRAST HISTORY: LLQ pain COMPARISON: 05/25/2020 TECHNIQUE: Routine abdominal and pelvic CT exam performed following intravenous contrast administrat ion.. All CT scans at this location are performed using CT dose reduction for ALARA by means of autom ated exposure control. FINDINGS: CT ABDOMEN: Lung Bases: No significant abnormality. Liver: No significant abnormality. Biliary: Gallbladder is surgically absent. Spleen: No significant abnormality. Unenlarged. Pancreas: No significant abnormality. Adrenals: No significant abnormality. Kidneys: No significant abnormality. Lymphatics: No lymphadenopathy. Vasculature: No significant abnormality. Bowel/Peritoneum: No significant abnormality. No free air. No free fluid. Appendix is surgically abse nt. CT PELVIC: : No significant abnormality. Lymphatics: No lymphadenopathy. Osseous Structures: No aggressive appearing osseous lesions. Additional Findings: None IMPRESSION: 1. No acute findings or findings to explain left lower quadrant pain. Signer Name: Roger Mcnally MD Signed: 01/25/2021 3:56 PM Workstation Name: [id number]
--- NOTE | 2021-01-25 16:26 | Emergency Department Report ---
ED Abdominal Pain HPI - General Chief Complaint: Abdominal Pain Stated Complaint: ABD PAIN/LEFT TO MIDDLE Time Seen by Provider: 01/25/21 13:02 Source: patient Mode of arrival: Ambulatory Limitations: No Limitations - History of Present Illness Initial Comments: Patient is a 30-year-old F Nepalese female who is presenting with 2 weeks of left lower quadrant abdominal pain. States is intermittent and comes and goes. States there is no nausea vomiting diarrhea fevers chills cough cold or congestion. Patient with no dysuria or urinary frequency. States that her menses are regular and there is no increased pain around the time of her menses. Denies any abnormal vaginal bleeding. Patient states pain is only in the left lower quadrant does not radiate. Pain at its worse estimated 6 out of 10 in severity. Severity scale (0 -10): 10 - Related Data Previous Rx's Medication Instructions Recorded Last Taken Type oxyCODONE /ACETAMINOPHEN [Percocet 1 tab PO Q4HR PRN #20 tab 05/26/20 Unknown Rx 5/325] Ketorolac [Toradol] 10 mg PO Q6H PRN #20 tablet 01/25/21 Unknown Rx Allergies Allergy/AdvReac Type Severity Reaction Status Date / Time No Known Allergies Allergy Verified 01/25/21 12:55 ED Review of Systems ROS: Stated complaint: ABD PAIN/LEFT TO MIDDLE Other details as noted in HPI Comment: All other systems reviewed and negative ED Past Medical Hx - Past Medical History Hx Hypertension: No Hx Congestive Heart Failure: No Hx Diabetes: No Hx Liver Disease: No Hx Renal Disease: No Hx Asthma: No Hx COPD: No Hx HIV: No - Surgical History Hx Cholecystectomy: Yes Additional Surgical History: C SECTION - Social History Smoking Status: Never Smoker - Medications Home Medications: Home Medications Medication Instructions Recorded Confirmed Last Taken Type oxyCODONE /ACETAMINOPHEN [Percocet 1 tab PO Q4HR PRN #20 tab 05/26/20 Unknown Rx 5/325] Ketorolac [Toradol] 10 mg PO Q6H PRN #20 tablet 01/25/21 Unknown Rx ED Physical Exam - General Limitations: No Limitations General appearance: alert, in no apparent distress - Head Head exam: Present: atraumatic, normocephalic - Eye Eye exam: Present: normal appearance, PERRL, EOMI - ENT ENT exam: Present: mucous membranes moist - Neck Neck exam: Present: normal inspection - Respiratory Respiratory exam: Present: normal lung sounds bilaterally. Absent: respiratory distress, wheezes, rales, rhonchi - Cardiovascular Cardiovascular Exam: Present: regular rate, normal rhythm, normal heart sounds. Absent: systolic murmur, diastolic murmur, rubs, gallop - GI/Abdominal GI/Abdominal exam: Present: soft, tenderness (Mild left lower quadrant pain is reproducible. Skin in this region is normal), normal bowel sounds. Absent: distended, guarding, rebound, rigid - Extremities Exam Extremities exam: Present: normal inspection - Back Exam Back exam: Present: normal inspection - Neurological Exam Neurological exam: Present: alert, oriented X3 - Psychiatric Psychiatric exam: Present: normal affect, normal mood - Skin Skin exam: Present: warm, dry, intact, normal color. Absent: rash ED Medical Decision Making - Lab Data Result diagrams: 01/25/21 13:15 01/25/21 13:15 Lab Results 01/25/21 01/25/21 01/25/21 Range/Units 13:15 13:15 13:15 WBC 4.5 (4.5-11.0) K/mm3 RBC 4.16 (3.65-5.03) M/mm3 Hgb 11.8 (10.1-14.3) gm/dl Hct 35.0 (30.3-42.9) % MCV 84 (79-97) fl MCH 28 (28-32) pg MCHC 34 (30-34) % RDW 13.8 (13.2-15.2) % Plt Count 308 (140-440) K/mm3 Sodium 138 (137-145) mmol/L Potassium 4.4 (3.6-5.0) mmol/L Chloride 104.8 (98-107) mmol/L Carbon Dioxide 23 (22-30) mmol/L Anion Gap 15 mmol/L BUN 8 (7-17) mg/dL Creatinine 0.6 (0.6-1.2) mg/dL Estimated GFR > 60 ml/min BUN/Creatinine Ratio 13 % Glucose 100 (65-100) mg/dL Calcium 8.7 (8.4-10.2) mg/dL HCG, Quant < 2 (0-4) mIU/mL - Radiology Data [facility] [address] [place] [address] Cat Scan Report Signed Patient: KIRA MCBRIDE MR#: [id number] : 03/10/1940 Acct:[id number] Age/Sex: 80 / F ADM Date: 01/25/21 Loc: ED Attending Dr: Ordering Physician: KAR PHILLIPS Date of Service: 01/25/21 Procedure(s): CT head/brain wo con Accession Number(s): [id number] cc: KAR PHILLIPS CT head/brain wo con INDICATION / CLINICAL INFORMATION: 80 years Female; dizziness, weakness. TECHNIQUE: Routine CT head without contrast. All CT scans at this location are performed using CT dose reduction for ALARA by means of automated exposure control. COMPARISON: None. FINDINGS: BRAIN / INTRACRANIAL CONTENTS: Small lacunar infarcts are seen in the gangliocapsular regions bilaterally, including the thalamic regions. Similar type findings seen on prior. Small branch PICA infarct is seen inferiorly on the left as well. Otherwise, no acute hemorrhage, mass effect, midline shift, hydrocephalus, or acute, large territorial infarct. Mild, diffuse cerebral atrophy. [id number] hippocampal atrophy noted. There are moderate, confluent areas of decreased attenuation in the white matter of the cerebral hemispheres, as well as the gangliocapsular regions. These are nonspecific findings and may be related to microangiopathy (hypertension, diabetes, atherosclerosis), given the patient's age. It might be difficult to evaluate for small areas of ischemia without diffusion fly ging by MRI. Some component of pontine disease cannot be excluded. CRANIOCERVICAL JUNCTION: No significant abnormality. ORBITS: No significant abnormality of visualized orbits. SINUSES / MASTOIDS: Visualized paranasal sinuses and mastoid air cells are essentially clear. ADDITIONAL FINDINGS: Atherosclerotic disease is seen in the anterior circulation. IMPRESSION: 1. No focal mass, hemorrhage, hydrocephalus, or acute, large territorial infarct. Follow-up with diffusion imaging by MRI, as clinically warranted. Signer Name: Niko Howard MD, III Signed: 01/25/2021 1:24 PM Workstation Name: [id number] - Medical Decision Making Patient is a 30-year-old F Nepalese female with left lower quadrant pain intermittently over the last 2 weeks. No obvious disease process found to cause left lower quadrant pain. 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 Critical care attestation.: If time is entered above; I have spent that time in minutes in the direct care of this critically ill patient, excluding procedure time. ED Disposition Clinical Impression: Abdominal pain Disposition: 01 HOME / SELF CARE / HOMELESS Is pt being admited?: No Does the pt Need Aspirin: No Condition: Stable Instructions: Abdominal Pain (ED), Abdominal Pain, Adult, [id number] Referrals: PRIMARY CARE, [Primary Care Provider] - 3-5 Days Time of Disposition: 16:25
== END 2021-01-25 16:53 | disposition home or self-care (01) ==
LOC: ED 12:12
DX: R10.32 Left lower quadrant pain (principal); Z90.49 Acquired absence of other specified parts of digestive tract; Z98.890 Other specified postprocedural states; Z79.899 Other long term (current) drug therapy
CPT/HCPCS: 36415; 74177; 80048; 84702; 85027; 96374; 99284; J1885; Q9967